=== PATIENT | female | born 1990 | race Caucasian/White ===

== ENCOUNTER → 2017-05-05 | Outpatient (REF) | payer OTHER | LOC: M LAB REF 19:10 | DX: B37.3 Candidiasis of vulva and vagina (principal) | CPT/HCPCS: 87086 ==

== ENCOUNTER 2017-06-29 07:39 | Emergency (ER) | payer OTHER, BC | END 2017-06-29 09:31 | disposition home or self-care (01) | LOC: M ED 07:39 | DX: S62.646A Nondisplaced fracture of proximal phalanx of right little finger, initial encounter for closed fracture (principal); X58.XXXA Exposure to other specified factors, initial encounter; Y92.59 Other trade areas as the place of occurrence of the external cause; Y93.69 Activity, other involving other sports and athletics played as a team or group; G47.00 Insomnia, unspecified; F17.210 Nicotine dependence, cigarettes, uncomplicated; Z79.899 Other long term (current) drug therapy; Z88.0 Allergy status to penicillin | CPT/HCPCS: 73130 ==